=== PATIENT | female | born 1965 | race Caucasian/White ===

== ENCOUNTER 2021-03-20 11:23 | Outpatient (CLI) | payer BC, SELFPAY ==
--- NOTE | ~2021-03-20 | XR_ITS ---
EXAMINATION: XR chest 2V 03/20/2021 11:50 INDICATION: History of smoking PROCEDURE: 2 view chest COMPARISON: No prior studies for comparison. FINDINGS: The lungs are clear. The cardiomediastinal silhouette is within normal limits. There are no pleural effusions. There is no pneumothorax suspected. IMPRESSION: 1: NO ACUTE CARDIOPULMONARY DISEASE. Reviewed, dictated and finalized at location A.
== END 2021-03-20 11:24 | disposition home or self-care (01) ==
LOC: ANHIMG 11:34
PROVIDERS: PCP Internal Medicine; Visit Provider Internal Medicine
DX: Z01.818 Encounter for other preprocedural examination (principal)
CPT/HCPCS: 71046

== ENCOUNTER → 2021-06-05 15:37 | Outpatient (CLI) | payer BC, SELFPAY ==
--- NOTE | ~2021-06-05 | US_ITS ---
EXAMINATION: US venous doppler [facility] DATE: 06/05/2021 16:11 INDICATION: Left lower limb pain TECHNIQUE: Grayscale ultrasound images without and with compression and Doppler ultrasound images of the left lower extremity veins were obtained. COMPARISON: None. FINDINGS: The visualized portions of left common femoral vein, profunda (deep) femoral vein, femoral vein, popl iteal vein, tibial peroneal trunk, peroneal veins, posterior tibial veins, gastrocnemius vein and gre ater saphenous vein outflow are patent. IMPRESSION: 1. No deep venous thrombosis in the left lower limb. Reviewed, dictated and finalized at location D. NT COUNSEL
== END ==
PROVIDERS: PCP Internal Medicine; Visit Provider Orthopaedic Surgery
DX: M79.606 Pain in leg, unspecified (principal)
CPT/HCPCS: 93971

== ENCOUNTER 2022-05-19 10:47 | Outpatient (CLI) | payer BC, SELFPAY ==
--- NOTE | 2022-05-19 | ECG_ITS ---
Measurements Intervals [place] Rate: 82 P: 62 [place]: 163 QRS: 61 QRSD: 78 T: 63 QT: 362 QTc: 425 Interpretive Statements SINUS RHYTHM BASELINE WANDER- I, II NORMAL ECG NO PREVIOUS ECG AVAILABLE FOR COMPARISON Electronically Signed On 05-19-2022 14:06:[address] FL[address]HER DRIVER by Jasper Buchanan D.O.
--- NOTE | ~2022-05-19 | XR_ITS ---
EXAMINATION: XR chest 2V 05/19/2022 11:14 INDICATION: Preop evaluation for lumbar surgery PROCEDURE: 2 view chest COMPARISON: 03/20/2021 FINDINGS: The lungs are clear. The cardiomediastinal silhouette is within normal limits. There are no pleural effusions. There is no pneumothorax suspected. IMPRESSION: 1: NO ACUTE CARDIOPULMONARY DISEASE. Reviewed, dictated and finalized at location B. ICATIONS CONSULTANT
[2022-05-19 11:35] LABS: Hematocrit 45.4 % (37.0-47.0); Hemoglobin 14.7 g/dL (12.0-15.0); Mean Corpuscular HGB Conc 32.4 g/dl (32-36); Mean Corpuscular Hemoglobin 30.1 pg (26-34); Mean Platelet Volume 10.9 fl (7.4-10.4); Platelet Count Result 289 k/mm3 (150-375); Red Blood Count 4.88 M/mm3 (4.2-5.4); Red Cell Distribution Width 13.4 % (11.5-14.5)
[2022-05-19 11:42] LABS: Anion Gap 4 mmol/L (8-16); Blood Urea Nitrogen 9 mg/dL (7-17); Calcium 9.3 mg/dL (8.4-10.2); Carbon Dioxide 27 mmol/L (22-30); Chloride 106 mmol/L (98-107); Estimated Glomerular Filt Rate > 60; Glucose 87 mg/dL (65-110); Potassium 4.1 mmol/L (3.4-5.0); Sodium 137 mmol/L (137-145)
== END 2022-05-19 10:48 | disposition home or self-care (01) ==
PROVIDERS: PCP Internal Medicine
DX: Z01.812 Encounter for preprocedural laboratory examination (principal); M48.061 Spinal stenosis, lumbar region without neurogenic claudication; M54.16 Radiculopathy, lumbar region; M43.16 Spondylolisthesis, lumbar region; I10 Essential (primary) hypertension; R23.3 Spontaneous ecchymoses; E03.9 Hypothyroidism, unspecified
CPT/HCPCS: 36415; 71046; 80048; 85027; 93005

== ENCOUNTER 2023-03-08 07:35 | Outpatient (CLI) | payer BC, SELFPAY ==
--- NOTE | ~2023-03-08 | US_ITS ---
Limited Abdominal Sonogram: Real-time sonographic imaging of the right upper quadrant was performed. Clinical History: Right upper quadrant pain Findings: The liver appears normal with no evidence of mass lesion or bile duct dilatation. Main por jun vein demonstrates normal direction of flow. The gallbladder is well distended, and appears normal with no evidence of gallstone or wall thickening. The common bile duct measures 4 mm. The visualize d pancreas, aorta, and IVC are unremarkable. Right kidney measures 9.7 cm in length, without hydronep hrosis. Impression: No significant abnormality seen. Reviewed, dictated and finalized at location . Impression: No significant abnormality seen.
== END 2023-03-08 07:36 ==
LOC: MICIMG 07:36
PROVIDERS: PCP Internal Medicine; Visit Provider Internal Medicine
DX: R10.11 Right upper quadrant pain (principal)
CPT/HCPCS: 76705

== ENCOUNTER 2023-06-03 00:42 | Day surgery (SDC) | payer BC, MEDICAID, SELFPAY ==
[2023-05-18 16:09] VITALS: BMI 24.9
--- NOTE | 2023-06-01 11:01 | SUR.PREOP ---
Patient called regarding upcoming procedure. Reviewed preop instructions, appointment times, and procedure prep.
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
[2023-06-03 09:16] VITALS: BP 129/93; PULSE 86; RESP 18; TEMP 36.6; O2SAT 99
[2023-06-03] MEDS: LACTATED RINGERS 1,000 ML 150 ML IV CONT (09:30)
[2023-06-03 10:43] VITALS: BP 100/63; PULSE 78; RESP 20; O2SAT 100
--- NOTE | 2023-06-03 10:47 | SUR.OPER ---
EGD started at 1019 and ended at 1023. Colonoscopy started at 1028 and ended at 1040.
[2023-06-03 10:53] VITALS: BP 104/71; PULSE 76; RESP 23; O2SAT 99
[2023-06-03 11:03] VITALS: BP 123/77; PULSE 75; RESP 18; O2SAT 100
== END 2023-06-03 11:10 | disposition home or self-care (01) ==
PROVIDERS: PCP Internal Medicine; Visit Provider Internal Medicine Gastroenterology
PROC: 0DJ08ZZ Inspection of Upper Intestinal Tract, Via Natural or Artificial Opening Endoscopic (ICD-10-PCS; CPT 43235; principal; 2023-06-03 10:00)
DX: Z12.11 Encounter for screening for malignant neoplasm of colon (principal); D12.8 Benign neoplasm of rectum; K21.00 Gastro-esophageal reflux disease with esophagitis, without bleeding; K44.9 Diaphragmatic hernia without obstruction or gangrene; Z87.891 Personal history of nicotine dependence; Z79.82 Long term (current) use of aspirin
CPT/HCPCS: 45385; 45381; 43239; 88305; J2704; J7120

== ENCOUNTER 2023-06-17 12:49 | Outpatient (CLI) | payer BC, MEDICAID, SELFPAY ==
[2023-06-17 13:14] LABS: Hematocrit 41.2 % (37.0-47.0); Hemoglobin 13.3 g/dL (12.0-15.0); Mean Corpuscular HGB Conc 32.3 g/dl (32-36); Mean Corpuscular Hemoglobin 29.6 pg (26-34); Mean Corpuscular Volume 91.8 fl (80-100); Mean Platelet Volume 10.6 fl (7.4-10.4); Platelet Count Result 271 k/mm3 (150-375); Red Blood Count 4.49 M/mm3 (4.2-5.4); Red Cell Distribution Width 12.6 % (11.5-14.5); White Blood Count 7.5 K/mm3 (4.5-10.0)
== END 2023-06-17 12:50 | disposition home or self-care (01) ==
LOC: ANHSURGERY 12:55
PROVIDERS: PCP Internal Medicine; Visit Provider Obstetrics & Gynecology
DX: Z01.818 Encounter for other preprocedural examination (principal); N84.1 Polyp of cervix uteri
CPT/HCPCS: 36415; 85027

== ENCOUNTER 2023-07-01 00:19 | Day surgery (SDC) | payer BC, MEDICAID, SELFPAY ==
[2023-06-17 09:05] VITALS: BMI 24.3
--- NOTE | 2023-06-17 09:05 | PC.NURSE ---
Report to the Outpatient Waiting Room, entrance under the green pavilion located off [facility], at time _0630_ on date -07-01-2022_. Planned Procedure Time: _0830_. Time changes happen often and if your time is changed the preop area will call you the afternoon before. - You and your visitor will be asked to self-screen and do not enter if you have any COVID symptoms. - A mask is optional within the hospital at this time. Patients may have clear liquids (water, carbonated beverages, clear teas, apple juice) until 3 hours prior to surgery with a maximum of 20 ounces. - No food from midnight until time of surgery Take the following medications with a SIP of water the morning of surgery: ___Levothyroxine DO NOT STOP ANY OF YOUR OTHER PRESCRIPTION MEDICATIONS PRIOR TO SURGERY ?EXCEPT THE FOLLOWING Medications to discontinue per physician Magnesium and Vitamin D3 Date to take last sjwr___[id number] Please no make-up, nail belarusian, hairspray, perfume, deodorant, or body powder the day of surgery. No jewelry (including any body piercings) or valuables the day of surgery, leave them at home. Please take a shower or bath the night before, or the morning of, surgery with an antibacterial soap. Wear comfortable, loose fitting clothing. - Jewelry must be removed prior to entering the operating room. Rings and piercings that are not removed may be cut off. - The hospital will not accept responsibility for valuables. - Please leave all valuables, including medications, at home the day of surgery. If you are going home after surgery, a licensed delivery route driver must drive you home. - NO public transportation without another adult if you receive anesthesia. - We recommend that an adult stay with you for 24 hours following discharge. - We also recommend that you do not drive, make important decision, drink alcoholic beverages, or take any drugs that were not prescribed by your health care provider for at least 24 hours after your discharge time. Follow any additional instructions given to you from your surgeon. If you or anyone in your household have experienced Covid symptoms in the past week, please notify your surgeon or the nurse liaison at the phone number below for possible testing. Telephone instructions given to __Tracy__and asked if any additional questions and then verbalized understanding. Patient advised to call surgeon office or pre surgery nurse liaison [phone] if any additional questions.
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
[2023-07-01 06:17] VITALS: BP 122/83; PULSE 74; RESP 18; TEMP 36.9; O2SAT 100
[2023-07-01] MEDS: ACETAMINOPHEN 500 MG TABLET 1000 MG PO (06:49)
[2023-07-01] MEDS: LACTATED RINGERS 1,000 ML 30 ML IV CONT (07:09)
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
--- NOTE | 2023-07-01 07:21 | WPDHPUPDATE1 ---
History and Physical Update Update Date/Time: 07/01/23 07:21 History and Physical has been reviewed, including an updated exam of the patient. There are NO changes in the patient's condition. Risks, benefits, and alternatives have been discussed and questions answered. Patient agrees to proceed with procedure.
--- NOTE | 2023-07-01 07:58 | W.PM.PROC2 ---
Procedure Note - Detailed Date of Procedure 07/01/23 Pre-op Diagnosis endocervical polyp Post-op Diagnosis Same Procedure Performed 1. hysteroscopy with uterine curettings 2. endocervical polypectomy Surgeon Zeferino Alfaro MD Anesthesia MAC Findings Atrophic endometrial cavity with endo cervical polyp noted Description of Procedure Patient was prepped draped usual manner this procedure. Single-tooth tenaculum attached to the anterior lip cervix and hysteroscope was placed with endometrial cavity noted be atrophic. Using ring forceps the endocervical polyp was then removed without difficulty. Curettings were also obtained though scant due to atrophic endometrial cavity. At this point procedure was considered terminated and the patient was sent to recovery room in stable condition. Estimated Blood Loss 10 Drains No Packing No Pathology Yes Complications No immediate complications Condition Stable Disposition PACU [facility] Billing Surgery - Charge Forward: Surgery Billing
[2023-07-01 08:04] VITALS: BP 108/70; PULSE 89; RESP 14; O2SAT 97
[2023-07-01] MEDS: fentaNYL CITRATE INJ (*CRX) 100 MCG/2 ML VIAL 25 MCG IV PUSH ×2 (08:18→08:22)
[2023-07-01 08:30] VITALS: BP 108/68; PULSE 72; RESP 16
[2023-07-01] MEDS: oxyCODONE HCL (*CRX) 5 MG TAB IR PO (08:48)
[2023-07-01 09:00] VITALS: BP 100/61; PULSE 71; RESP 18
== END 2023-07-01 09:17 | disposition home or self-care (01) ==
PROVIDERS: PCP Internal Medicine; Visit Provider Obstetrics & Gynecology
PROC: 0U5B8ZZ Destruction of Endometrium, Via Natural or Artificial Opening Endoscopic (ICD-10-PCS; CPT 58563; principal; 2023-07-01 07:30)
DX: N84.0 Polyp of corpus uteri (principal); N80.9 Endometriosis, unspecified; Z98.890 Other specified postprocedural states; Z79.82 Long term (current) use of aspirin; Z87.891 Personal history of nicotine dependence; Z82.49 Family history of ischemic heart disease and other diseases of the circulatory system; Z80.41 Family history of malignant neoplasm of ovary
CPT/HCPCS: 58558; 88305; A9270; J1100; J1885; J2250; J2405; J2704; J3010; J7120

== ENCOUNTER 2023-07-14 07:50 | Outpatient (CLI) | payer MEDICAID, SELFPAY ==
--- NOTE | ~2023-07-14 | CT_ITS ---
CT of the Abdomen and Pelvis: Indication: Diaphragmatic hernia Technique: 2.5 mm axial scans were obtained through the abdomen and pelvis following intravenous adm inistration of 100 cc of Omnipaque 350. Dose reduction technique was used on this scan by utilizing a utomated exposure control and iterative reconstruction technique. The dose-length product (DLP) was 4 16.97 mGy-cm. Findings: Scans through the lung bases are unremarkable. The liver, spleen, pancreas, gallbladder, adrenals and kidneys are within normal limits. There are atherosclerotic calcifications of the aorta. No lymphadenopathy. No bowel obstruction or bowel wall thickening. There is no evidence to suggest acute appendicitis. Images through the pelvis were performed. Urinary bladder unremarkable. No adnexal mass. No ascites. Impression: No significant abnormalities seen. No diaphragmatic hernia identified. Reviewed, dictated and finalized at [facility]. IAC CATH TECHNOLOGIST Impression: No significant abnormalities seen. No diaphragmatic hernia identified.
--- NOTE | ~2023-07-14 | NM_ITS ---
EXAMINATION: NM hepatobiliary wo pharm DATE: 07/14/2023 11:25 INDICATION: Unspecified abdominal pain COMPARISON: None. TECHNIQUE: 5 mCi Tc-99m mebrofenin (Choletec) was administered intravenously. Scintigraphic images o f the abdomen were obtained for one hour. At the 1 hour time point, the patient drank 8 oz Ensure, an d imaging was continued for 60 minutes. Gallbladder ejection fraction was calculated by the technolog ist. FINDINGS: There is normal clearance of radiotracer from the blood pool. There is homogeneous tracer u ptake by the liver. Activity progresses to the bowel and gallbladder. The gallbladder ejection fract ion (GBEF) is 5%. Note that with this technique, normal GBEF >= 33%. IMPRESSION: 1. Normal hepatobiliary scan Reviewed, dictated and finalized at location A. ICAL SERVICES ASSISTANT
[2023-07-14 08:24] LABS: Estimated Glomerular Filt Rate > 60
== END 2023-07-14 07:51 | disposition home or self-care (01) ==
PROVIDERS: PCP Internal Medicine; Visit Provider Internal Medicine
DX: K44.9 Diaphragmatic hernia without obstruction or gangrene (principal)
CPT/HCPCS: 74177; 78226; A9537; Q9967